=== PATIENT | male | born 1955 | race African-American/Black ===

== ENCOUNTER 2017-01-11 10:11 | Emergency (ER) | payer OTHER ==
[~2017-01-11] VITALS: Ht 175.3 cm; Wt 108.9 kg
[~2017-01-11 10:11] MED LIST: ALBUTEROL SULF8.5 GM INH; AZITHROMYCIN250 MG ORAL; CEPHALEXIN500 MG ORAL; CIPROFLOXACIN500 M2 ORAL; FLOMAX0.4 MG ORAL; FUROSEMIDE40 MG ORAL; IBUPROFEN600 MG ORAL; K-DUR10 ME1 ORAL; LASIX40 MG ORAL; LEVAQUIN500 MG ORAL; METOPROLOL SUCC50 MG ORAL; METOPROLOL TART25 MG ORAL; NORCO 5-325 TA1 EACH ORAL; NORVASC5 MG ORAL; POTASSIUM CHLO20 ME1 ORAL; PREDNISONE20 M1 PO; PROMETHAZINE-C118 M1 ORAL; PROZAC20 MG ORAL; ROBITUSSIN DM5 ML GT; ROBITUSSIN DM5 ML PO; SEROQUEL XR300 MG ORAL; SEROQUEL200 MG ORAL; TAMSULOSIN HCL0.4 MG ORAL; VENTOLIN HFA18 GM INH; ZITHROMAX250 MG ORAL
[2017-01-11 10:28] VITALS: BP 179/118
[2017-01-11 10:42] VITALS: BP 174/139
[2017-01-11] MEDS ORDERED: Norco 10mg/325mg tab ORAL ONE (11:00)
[2017-01-11] MEDS ORDERED: Promethazine/Codeine 5ml UD ORAL ONE (11:00)
[2017-01-11] MEDS ORDERED: Azithromycin 250mg tab ORAL ONE (11:00)
[2017-01-11] MEDS ORDERED: Lidocaine 1% MPF 10mg/ml 5ml ONE (11:01)
--- NOTE | 2017-01-11 11:01 | Emergency Room Report ---
History of Present Illness General Chief Complaint: Lower Back Pain or Injury Source: Patient, Medical Record Present Illness HPI Patient presents with similar complaints main complaint initially was lower back pain Patient reports falling Hitting the right elbow Also reinjuring his lower back Patient also reports that he smoked something from someone several days ago He noticed a the patient was extremely sick And now he is also having increased cough Patient denies any vomiting or diarrhea denies any fevers or chills He feels that the cough is exacerbating his low back pain as well Patient also requesting STD examination complaining of some discharge from the penis Allergies: Coded Allergies: No Known Allergies (Unverified , 11/06/13) Patient History Past Medical History: see triage record Pertinent Family History: none Reviewed Nursing Documentation: PMH: Agreed, PSxH: Agreed Nursing Documentation-PMH Hx Hypertension: Yes Hx Gastrointestinal Problems: No History Of Psychiatric Problem: Yes - Schizophrenia Hx Neurological Problems: Yes Review of Systems All Other Systems: negative except mentioned in HPI Physical Exam Vital Signs Date Time Temp Pulse Resp B/P (MAP) Pulse Ox O2 Delivery O2 Flow Rate FiO2 01/11/17 10:18 98.2 97 20 174/139 98 Room Air Sp02 EP Interpretation: reviewed, normal General Appearance: no apparent distress Head: normocephalic, atraumatic Eyes: bilateral eye PERRL, bilateral eye EOMI ENT: hearing grossly normal, normal pharynx Neck: full range of motion, supple Respiratory: no respiratory distress, no retraction, crackles - In both lower lobes Cardiovascular #1: regular rate, rhythm, other - Right lower leg edema, patient reports chronic Gastrointestinal: normal bowel sounds, non tender Musculoskeletal: other - Tender along the right posterior superior iliac crest patient able to ambulate, Neurologic: alert, oriented x3, responsive Skin: other - Swelling is noted above Lymphatic: no adenopathy Medical Decision Making Diagnostic Impression: Primary Impression: Low back pain Additional Impression: Bronchitis ER Course Given the patient's presentation and history Patient was provided with pain medication And cough syrup has done significantly better x-ray imaging shows very minimal congestion no obvious overt CHF And the patient is stable for close outpatient followup Chest X-Ray Diagnostic Results Chest X-Ray Diagnostic Results : Chest X-Ray Ordered: Yes # of Views/Limited/Complete: 1 View Indication: Chest Pain EP Interpretation: Yes Interpretation: no consolidation, no effusion, no pneumothorax, other - mild congestion Impression: No acute disease Electronically Signed by: Pastora Lewis DO Last Vital Signs Date Time Temp Pulse Resp B/P (MAP) Pulse Ox O2 Delivery O2 Flow Rate FiO2 01/11/17 10:42 98.2 94 20 174/139 98 Room Air Status: improved Disposition: HOME, SELF-CARE Condition: Improved Scripts Codeine/Promethazine Hcl* (PROMETHAZINE-CODEINE SYRUP*) 118 Ml Syrup 10 ML ORAL Q6H Y for For Cough for 5 Days, ML 0 Refills Prov: PASTORA LEWIS D.O. 01/11/17 Ibuprofen* (MOTRIN*) 600 Mg Tablet 600 MG ORAL Q8H Y for For Pain, #20 TAB 0 Refills Prov: PASTORA LEWIS D.O. 01/11/17 Additional Instructions: Patient is provided with the discharge instructions notified to follow up with primary doctor in the next 2-3 days otherwise return to the er with any worsening symptoms. Please note that this report is being documented using [employer] technology. This can lead to erroneous entry secondary to incorrect interpretation by the dictating instrument. PASTORA LEWIS D.O. Jan 11, 2017 11:01
[2017-01-11] MEDS ORDERED: Lidocaine 1% MPF 10mg/ml 5ml INJ ONE (11:15)
[2017-01-11] MEDS ORDERED: IBUPROFEN600 MG ORAL (11:40)
[2017-01-11] MEDS ORDERED: PROMETHAZINE-C118 M1 ORAL (11:40)
--- NOTE | 2017-01-11 11:59 | Diagnostic Imaging Report ---
Indication: Dyspnea Comparison: 01/13/16 A single view chest radiograph was obtained. Findings: Interstitial edema demonstrated with cardiomegaly. Bones are osteopenic. Impression: Mild interstitial edema
[2017-01-11 12:00] VITALS: BP 163/126
[2017-01-11 12:15] VITALS: BP 163/126
== END 2017-01-11 12:15 | disposition home or self-care (01) ==
LOC: EMR 11:00
DX: M54.5 Low back pain (principal); J40 Bronchitis, not specified as acute or chronic; R60.0 Localized edema; I10 Essential (primary) hypertension; F20.9 Schizophrenia, unspecified
CPT/HCPCS: 71010; 96372; 99284; J0696; Q0144